=== PATIENT | male | born 1935 | race Caucasian/White ===

== ENCOUNTER → 2018-10-10 | Day surgery (SDC) | payer MEDICARE ==
[~2018-10-10] MED LIST: ASPI325T8 PO; DEXAMETHASONE SOD PHOS 20 MG/5 ML VIAL. ONE; FAMOTIDINE 20 MG/2 ML VIAL ONE; FURO-69 PO; IOHEXOL 300 MG/ML 100ML VIAL. ONE; IV RINGERS,LACTATED 1000ML 1,000 ML IV SCH; LIDOCAINE 1% PF 2 ML VIAL. ID PRN; LIDOCAINE 2% PF 5 ML VIAL. ONE; MIDAZOLAM HCL/PF 2 MG/2 ML VIAL. IV PRN; ONDANSETRON PF 4 MG/2 ML VIAL. ONE; PROPOFOL 20 ML IV ONE; SILD20TA2 PO; fentaNYL PF VIAL 100 MCG/2 ML VIAL IV PRN
[2018-10-10 09:15] VITALS: BP 122/63
[2018-10-10 10:14] LABS: ALBUMIN 2.5 g/dL (3.4-5.0); DIRECT BILIRUBIN 15.4 mg/dL (0.0-0.2); TOTAL BILIRUBIN 21.2 mg/dL (0.2-1.0)
[2018-10-12 18:10] LABS: MITOCHONDRIAL ABDY <20.0 Units (0.0-20.0)
[2018-10-13 20:11] LABS: ANA INTERP Positive (.)
[2018-10-14 06:21] LABS: IGG1 546 mg/dL (248-810); IGG2 259 mg/dL (130-555); IGG3 44 mg/dL (15-102); IGG4 21 mg/dL (2-96); TOTAL IGG 1130 mg/dL (700-1600)
--- NOTE | 2018-10-22 15:25 | RAD ---
Fluoroscopy for ERCP, without comparison. Fluoroscopy time: 1.2 minutes. Images: 5 Findings and impression:Images the common duct are normal. There has been a prior cholecystectomy. On the initial images, there are couple of eccentric filling defects within the proximal portion of the right and left hepatic ducts, which later disappear and are quite possibly air bubbles. No suspicious intraluminal abnormalities. Electronically signed by: Prudencio Lanza MD (10/22/2018 3:23 PM) [id number]
== END | disposition home or self-care (01) ==
LOC: SURG 06:38
PROVIDERS: ATTEND Internal Medicine Gastroenterology
DX: R17 Unspecified jaundice (principal); Z79.899 Other long term (current) drug therapy; Z79.82 Long term (current) use of aspirin; Z90.49 Acquired absence of other specified parts of digestive tract; E78.00 Pure hypercholesterolemia, unspecified; Z82.49 Family history of ischemic heart disease and other diseases of the circulatory system; Z72.89 Other problems related to lifestyle; Z87.891 Personal history of nicotine dependence; Z98.890 Other specified postprocedural states
CPT/HCPCS: 36415; 43260; 74328; 80076; 82787; 83520; 86038; 86301; C1757; J1100; J2001; J2405; J2704; J3490; Q9967; 83516